=== PATIENT | female | born 1990 | race Caucasian/White ===

== ENCOUNTER 2016-10-22 08:56 | Emergency (ER) | payer BC ==
[~2016-10-22] VITALS: Ht 160 cm; Wt 90.7 kg
[~2016-10-22 08:56] MED LIST: CITA40TA19 PO; CYCL10TA9 PO; HYDR-3714 PO; IBUP800T26 PO; SPIR50TA27 PO
[2016-10-22] MEDS ORDERED: PROG100C6 RC (09:14)
[2016-10-22 09:30] LABS: BILIRUBIN,URINE NEGATIVE (NEGATIVE); KETONES,URINE 1+ (NEGATIVE); LEUKOCYTE ESTERASE ,URINE 2+ (NEGATIVE); NITRITE,URINE NEGATIVE (NEGATIVE); PH,URINE 5 (5-9); PROTEIN,URINE 2+ (NEGATIVE); UROBILINOGEN,URINE NORMAL (NORMAL)
[2016-10-22 09:44] LABS: WBC,URINE RARE /HPF
--- NOTE | 2016-10-22 10:46 | ED GU-Female ---
General Chief Complaint: -Female Stated Complaint: POSS MISCARRIAGE/VAG BLEEDING Nursing Triage Note: Ambulatory to ED 9, referred by Dr. Wilkinson's office for reports of vaginal bleeding that started at 0800. Patient denies any pain. Patient reports that the bleeding is slightly heavier than spotting, but is not heavy bleeding. She has passed some clots. Nursing Sepsis Screen: No Definite Risk Source: patient Exam Limitations: no limitations History of Present Illness Time seen by provider: 10:41 Initial Comments The patient is a 26-year-old white female who is here because of vaginal bleeding. She believes herself to be 5 weeks by virtue of a quantitative hCG done last week. She reports that it this morning at about 2 hours prior to her appearance here she began to have Modest vaginal bleeding. There is no pain. She states there has been some clotting. She had called Dr. Wilkinson's office but he was out for the weekend. His staff sent her here for repeat hCG. Timing/Duration: this morning Severity/Quality: mild Allergies and Home Medications Allergies Coded Allergies: Penicillins (Verified Allergy, Intermediate, RASH, 10/22/16) Home Medications Progesterone,Micronized 100 Mg Capsule, 100 MG RC BID, (Reported) Constitutional: see HPI EENTM: no symptoms reported Respiratory: no symptoms reported Cardiovascular: no symptoms reported Gastrointestinal: no symptoms reported Genitourinary: see HPI Musculoskeletal: no symptoms reported Skin: no symptoms reported Psychiatric/Neurological: No Symptoms Reported Endocrine: No Symptoms Reported Hematologic/Lymphatic: No Symptoms Reported Past Nawmkdq-Ivjuwq-Vbcupn Hx Patient Social History Alcohol Use: Denies Use Recreational Drug Use: No Smoking Status: Never a Smoker 2nd Hand Smoke Exposure: No Recent Foreign Travel: No Contact w/Someone Who Travel: No Recent Infectious Disease Expo: No Recent Hopitalizations: No Immunizations Up To Date Tetanus Booster (TDap): Less than 5yrs PED Vaccines UTD: Yes Date of Influenza Vaccine: Mar 03, 2016 Seasonal Allergies Seasonal Allergies: No Surgeries HX Surgeries: No Respiratory Hx Respiratory Disorders: No (allergies) Cardiovascular Hx Cardiac Disorders: No Neurological Hx Neurological Disorders: No Reproductive System Hx Reproductive Disorders: Yes Female Reproductive Disorders: Polycystic Ovarian Dis Genitourinary Hx Genitourinary Disorders: No Gastrointestinal Hx Gastrointestinal Disorders: Yes Gastrointestinal Disorders: Gastroesophageal Reflux Musculoskeletal Hx Musculoskeletal Disorders: No Endocrine Hx Endocrine Disorders: Yes (pre diabetic) HEENT HX ENT Disorders: No Cancer Hx Cancer: No Psychosocial Hx Psychiatric Problems: Yes Behavioral Health Disorders: Depression Integumentary HX Skin/Integumentary Disorder: No Blood Transfusions Hx Blood Disorders: No Adverse Reaction to a Blood Tr: No Physical Exam Vital Signs Vital Sign - Last 12Hours 10/22/16 09:07 Temp 98.2 Pulse 104 Resp 16 B/P (MAP) 139/82 Pulse Ox 97 O2 Delivery Room Air Capillary Refill : Less Than 3 Seconds General Appearance: WD/WN, no apparent distress HEENT: normal ENT inspection Cardiovascular: normal peripheral pulses, regular rate, rhythm, no edema, no gallop, no JVD, no murmur Respiratory: chest non-tender Gastrointestinal: other Progress/Results/Core Measures Results/Orders Lab Results Laboratory Tests Test 10/22/16 09:18 10/22/16 09:20 Range/Units Urine Color YELLOW Urine Clarity SLIGHTLY CLOUDY Urine pH 5 5-9 Urine Specific New Site 1.020 1.016-1.022 Urine Protein 2+ H NEGATIVE Urine Glucose (UA) NEGATIVE NEGATIVE Urine Ketones 1+ H NEGATIVE Urine Nitrite NEGATIVE NEGATIVE Urine Bilirubin NEGATIVE NEGATIVE Urine Urobilinogen NORMAL NORMAL MG/DL Urine Leukocyte Esterase 2+ H NEGATIVE Urine RBC (Auto) 5+ H NEGATIVE Urine RBC 5-10 H /HPF Urine WBC RARE /HPF Urine Squamous Epithelial Cells 5-10 /HPF Urine Crystals NONE /LPF Urine Bacteria FEW H /HPF Urine Casts NONE /LPF Urine Mucus MODERATE H /LPF Urine Culture Indicated YES Human Chorionic Gonadotropin, Quant [id number] H <5 MIU/ML My Orders Orders - COLBY HAWK MD Hcg,Quantitative (10/22/16 09:14) Ua Culture If Indicated (10/22/16 09:14) Urine Culture (10/22/16 09:18) Vital Signs/I&O Vital Sign - Last 12Hours 10/22/16 09:07 Temp 98.2 Pulse 104 Resp 16 B/P (MAP) 139/82 Pulse Ox 97 O2 Delivery Room Air Blood Pressure Mean: 101 Departure Impression Impression: Primary Impression: vaginal bleeding/threatened miscarriage Disposition: 01 HOME, SELF-CARE Condition: Improved Departure-Patient Inst. Decision time for Depature: 10:44 Referrals: GISELA COLIN DO (PCP) Primary Care Physician Add. Discharge Instructions: All discharge instructions reviewed with patient and/or family. Voiced understanding. The hCG was 41,000 as compared to 19,000 from an outpatient reading last week. A copy of this was sent with the patient. She is advised to rest and observe. A repeat in 2 days or more will define the issue of miscarriage COLBY HAWK MD October 22, 2016 10:46
[2016-10-22 11:05] VITALS: BP 139/82
== END 2016-10-22 11:06 | disposition home or self-care (01) ==
LOC: EDUNIT# 08:56 → ER 09:00
DX: O20.0 Threatened abortion (principal); Z3A.01 Less than 8 weeks gestation of pregnancy
CPT/HCPCS: 36415; 81000; 84702; 87088; 99283

== ENCOUNTER 2017-02-06 22:16 | Outpatient (CLI) | payer BC ==
[~2017-02-06] VITALS: Ht 158.8 cm; Wt 103.0 kg
[~2017-02-06 22:16] MED LIST changes: +PROG100C6 RC
[2017-02-06 22:33] VITALS: BP 120/65
[2017-02-06] MEDS ORDERED: PREN-142 PO (22:50)
--- NOTE | 2017-02-07 14:37 | Physician Query-Final Dx ---
MIRTHA PRAR 02/07/17 1437: Clinic Account Progress/Dx Physician Query: Please give diagnosis Date of Service Feb 06, 2017 at 22:16 LEONOR HEATON MD 02/07/17 1746: Clinic Account Progress/Dx DIAGNOSIS: Diagnosis decreased movement MIRTHA PARR Feb 07, 2017 14:37 LEONOR HEATON MD Feb 07, 2017 17:46
== END 2017-02-06 22:55 | disposition home or self-care (01) ==
LOC: WSo 22:16 → LDRP 22:17 → WSo 22:55
PROVIDERS: ATTEND Obstetrics & Gynecology
DX: O36.8120 Decreased fetal movements, second trimester, not applicable or unspecified (principal); Z3A.20 20 weeks gestation of pregnancy
CPT/HCPCS: 99213

== ENCOUNTER 2017-06-09 07:00 | Inpatient (IN) | payer BC ==
[~2017-06-09] VITALS: Ht 160 cm; Wt 99.8 kg
[2017-06-09] VITALS (64 sets, daily range): BP systolic 88–135; BP diastolic 47–75
[~2017-06-09 07:00] MED LIST changes: +PREN-142 PO
[2017-06-09] MEDS ORDERED: OXYTOCIN/NORMAL SALINE 500 ML IV SCH ×2 (07:25→18:07)
[2017-06-09] MEDS ORDERED: VANCOMYCIN INJECTION 1,000 MG in NS (IVPB) 250 ML IV SCH (07:30)
--- NOTE | 2017-06-09 07:37 | History & Physical ---
History and Physical Date Seen by Provider: Jun 09, 2017 Time Seen by Provider: 07:33 this patient is a 26-year-old G1 white female with a due date of June 21, 2017. That places her at 38-2/7 weeks' gestation. Her is complicated by fascial diabetes which has been well controlled with diet. She presents now for labor induction. She denies rupture membranes or bleeding. She is having occasional contractions. She is GBS positive and allergic to penicillin. The Isolette was showed inducible resistance to clindamycin. She will be prophylaxed with vancomycin. allergies are to penicillin Medications are vitamins and Atarax Past medical history, past surgical history, obstetric history, family history, and social histories are per the antepartum record HEENT exam is normal Neck is supple no lymphadenopathy no thyromegaly Abdomen is gravid soft nontender nondistended Extremities show no clubbing cyanosis. There is no Homans sign. Pelvic exam is pending prior exam in clinic showed a cervix is 3 cm dilated over 50% effaced, at the 0 to -1 station vertex with a soft and mid cervix - this equates to Villanueva score of 9 Assessment and plan term at 38-2/7 weeks' gestation with GBS positive culture. She'll be prophylaxed with vancomycin. Plan is for induction of labor with Pitocin. Expectation is for vaginal delivery. Plans preparations will be in place for if needed. Blood sugars were monitored during labor as warranted 38-2/7 weeks' gestation with gestational diabetes admitted for labor induction Allergies and Home Medications Allergies Coded Allergies: Penicillins (Verified Allergy, Intermediate, RASH, 10/22/16) Home Medications Vit No.124/Iron/FA 1 Each Tablet, 1 EACH PO DAILY, (Reported) LEONOR HEATON MD Jun 09, 2017 07:37
[2017-06-09 07:56] LABS: BASOPHILS % (AUTO) 0 % (0-10); EOSINOPHILS # (AUTO) 0.2 10^3/uL (0.0-0.3); EOSINOPHILS % (AUTO) 3 % (0-10); HEMATOCRIT 34 % (35-52); HEMOGLOBIN 12.4 G/DL (11.5-16.0); LYMPHOCYTES # (AUTO) 2.2 X 10^3 (1.0-4.0); LYMPHOCYTES % (AUTO) 28 % (12-44); MEAN CORPUSCULAR HEMOGLOBIN 30 PG (25-34); MEAN CORPUSCULAR HGB CONC 36 G/DL (32-36); MEAN CORPUSCULAR VOLUME 84 FL (80-99); MEAN PLATELET VOLUME 10.7 FL (7.4-10.4); MONOCYTES # (AUTO) 0.9 X 10^3 (0.0-1.0); MONOCYTES % (AUTO) 11 % (0-12); NEUTROPHILS # (AUTO) 4.4 X 10^3 (1.8-7.8); NEUTROPHILS % (AUTO) 57 % (42-75); PLATELET COUNT 193 10^3/uL (130-400); RED BLOOD COUNT 4.08 10^6/uL (4.35-5.85); RED CELL DISTRIBUTION WIDTH 13.6 % (10.0-14.5); WHITE BLOOD COUNT 7.6 10^3/uL (4.3-11.0)
[2017-06-09] MEDS: D5 LR IV SOLUTION 1,000 ML IV SCH ×2 (08:01→14:12)
[2017-06-09] MEDS ORDERED: INFLUENZA TRIvalent 2017-2018 0.5 ML/45 MCG SYR IM ONE (09:00)
[2017-06-09] MEDS ORDERED: diphenhydrAMINE 50 MG/ML INJ (BENADRYL) IM ONE (09:00)
[2017-06-09] MEDS ORDERED: SUFENTA 0.6MCG/ML BUPIVA 0.125 100 ML ONE ×2 (12:43→13:17)
[2017-06-09] MEDS ORDERED: LIDOCAINE PF 2% 5 ML (XYLOCAINE) VIAL ONE (13:17)
[2017-06-09] MEDS ORDERED: fentaNYL INJECTION 100 MCG/2 ML AMP ONE (13:17)
[2017-06-09] MEDS ORDERED: LACTATED RINGERS 1,000 ML IV ONE (17:09)
[2017-06-09] MEDS ORDERED: ONDANSETRON 4 MG/2 ML (SDV) Z0FRAN IV PRN (17:15)
[2017-06-09] MEDS ORDERED: EPIDURAL (SUFENTA 0.6MCG/ML BUPIVA 0.125%) 100 ML BAG EPI PRN (17:15)
[2017-06-09] MEDS ORDERED: NALOXONE 0.4 MG/ML 1 ML (NARCAN) VIAL IV PRN ×2 (17:15)
[2017-06-09] MEDS ORDERED: diphenhydrAMINE 50 MG/ML INJ (BENADRYL) IV PRN (17:15)
[2017-06-09] MEDS ORDERED: METOCLOPRAMIDE INJ 10 MG/2 ML (REGLAN) IV PRN (17:15)
[2017-06-09] MEDS ORDERED: LIDOCAINE/EPI 2% 1:200,00 (XYLOCAINE) 10 ML VIAL ONE (17:47)
[2017-06-09] MEDS ORDERED: MEASLES,MUMPS,RUBELLA 1 EA INJ SC ONE (18:15)
[2017-06-09] MEDS ORDERED: BENZOCAINE/MENTHOL (DERMOPLAST) 56 ML CAN TP PRN (18:15)
[2017-06-09] MEDS ORDERED: ONDANSETRON 4 MG/2 ML (SDV) Z0FRAN IVP PRN (18:15)
[2017-06-09] MEDS ORDERED: TETANUS,DIPTH,PERTUSS P/F (BOOSTRIX) 0.5 ML VIAL IM ONE (18:15)
[2017-06-09] MEDS ORDERED: LIDOCAINE/EPI 2% 1:100,00 (XYLOCAINE) 20 ML VIAL INJ ONE (19:00)
[2017-06-09] MEDS: DOCUSATE SODIUM 100 MG (COLACE) CAP PO SCH (21:58)
[2017-06-09] MEDS: KETOROLAC 30 MG/ML VIAL IV SCH (21:58)
[2017-06-09] MEDS: oxyCODONE/APAP 10/325MG (PERCOCET 10) TABLET PO PRN (23:48)
--- NOTE | 2017-06-10 03:34 | OPERATIVE REPORT ---
DATE OF SERVICE: 06/09/2017 DELIVERY NOTE The patient delivered a viable female via term spontaneous vaginal delivery under epidural analgesia augmented with local and over a midline episiotomy performed when the patient had the baby pushed down onto the perineum and could not affect the delivery. An episiotomy was performed and with the next 2 or 3 pushes the infant delivered. There was a double nuchal cord that was easily released. The was bulb suctioned on delivery of the head and again on completion of delivery. The umbilical cord when pulseless was clamped doubly. The father cut the cord, the baby was passed to mom's abdomen. The infant had weight of 6 pounds 2 ounces, Apgars of 8 and 9 and time of 1910. The placenta delivered spontaneously, it was Aguilar. It was a battledore placenta with a 3-vessel cord and appeared normal. It was sent to pathology for permanent section secondary to the patient's gestational diabetes. Cord blood had been obtained, it had a pH of 7.18. The infant was shown some decelerations during the pushing phase, but it had a normal reassuring strip throughout and the infant had normal Apgars after delivery. The cervix, vagina, rectum and perineum were examined and found intact except for the midline episiotomy, which was repaired with a single suture of 3-0 Vicryl Rapide in the usual manner without difficulty. Sponge and needle counts were correct on completion of delivery and the repair. Estimated blood loss was around 300 mL. The patient remained in the LDR for recovery. The baby remained with the mom. Job ID: [id number] DocumentID: [id number] Dictated Date: 06/09/2017 19:36:02 Bonding Supervisor Date: 06/10/2017 03:33:57 Dictated By: LEONOR HEATON MD
[2017-06-10 04:05] VITALS: BP 109/65
[2017-06-10] MEDS: oxyCODONE/APAP 10/325MG (PERCOCET 10) TABLET PO PRN (04:08)
[2017-06-10] MEDS: KETOROLAC 30 MG/ML VIAL IV SCH ×2 (04:08→10:00)
--- NOTE | 2017-06-10 07:52 | Progress Note-Standard ---
Standard Progress Note Progress Notes/Assess & Plan Date Seen by Provider: Jun 10, 2017 Time Seen by Provider: 07:51 Progress/Assessment & Plan this patient is without complaint. She is ambulating, voiding, tolerating by mouth well, has good pain control. Vital Signs Date Time Temp Pulse Resp B/P (MAP) Pulse Ox O2 Delivery O2 Flow Rate FiO2 06/10/17 04:05 97.5 87 18 109/65 (80) 99 Room Air 06/09/17 23:50 98.7 95 18 90/56 (67) 98 Room Air 06/09/17 21:15 101.5 06/09/17 20:52 110 18 88/47 (61) Room Air 06/09/17 20:36 100.9 120 18 92/54 (67) Room Air 06/09/17 20:21 121 18 92/53 (66) Room Air 06/09/17 20:06 101.9 118 18 103/54 (70) Room Air 06/09/17 19:51 101.2 115 18 99/52 (68) Room Air 06/09/17 19:38 117 18 93/48 (63) Room Air 06/09/17 19:35 102.0 06/09/17 19:21 133 18 117/53 (74) Room Air 06/09/17 18:30 88 123/62 (82) Room Air 06/09/17 18:15 82 135/64 (87) Room Air 06/09/17 18:00 96 125/75 (92) Room Air 06/09/17 17:45 99.0 98 104/65 (78) Room Air 06/09/17 17:30 82 101/54 (70) Room Air 06/09/17 17:15 91 22 118/49 (72) Room Air 06/09/17 16:45 83 111/58 (75) Room Air 06/09/17 16:30 90 108/53 (71) Room Air 06/09/17 16:15 100.1 80 105/61 (76) Room Air 06/09/17 16:00 83 117/59 (78) Room Air 06/09/17 15:45 91 127/71 (89) Room Air 06/09/17 15:30 85 129/61 (83) Room Air 06/09/17 15:15 Room Air 06/09/17 15:10 75 104/53 (70) Room Air 06/09/17 15:00 99.5 80 98/53 (68) Room Air 06/09/17 14:45 85 114/57 (76) Room Air 06/09/17 14:40 85 118/60 (79) Room Air 06/09/17 14:35 88 115/64 (81) Room Air 06/09/17 14:30 85 114/57 (76) Room Air 06/09/17 14:15 99 117/71 (86) 97 Room Air 06/09/17 14:12 85 108/59 (75) 97 Room Air 06/09/17 14:10 81 111/56 (74) 96 Room Air 06/09/17 14:06 81 118/59 (78) 96 Room Air 06/09/17 14:03 90 118/58 (78) 98 Room Air 06/09/17 14:00 77 129/70 (89) 98 Room Air 06/09/17 13:58 83 107/58 (74) 98 Room Air 06/09/17 13:55 99.9 75 105/55 (72) 97 Room Air 06/09/17 13:50 77 106/65 (79) 98 Room Air 06/09/17 13:45 89 125/65 (85) Room Air 06/09/17 13:43 95 120/71 (87) 97 Room Air 06/09/17 13:41 91 126/66 (86) 97 Room Air 06/09/17 13:38 93 124/59 (80) 99 Room Air 06/09/17 13:35 89 123/59 (80) 99 Room Air 06/09/17 13:30 93 121/60 (80) Room Air 06/09/17 13:29 79 120/70 (87) 99 Room Air 06/09/17 13:25 86 117/58 (77) 97 Room Air 06/09/17 13:23 83 125/59 (81) 97 Room Air 06/09/17 13:20 82 109/55 (73) 97 Room Air 06/09/17 13:15 91 134/58 (83) Room Air 06/09/17 13:13 82 116/58 (77) 98 Room Air 06/09/17 13:10 94 125/69 (87) Room Air 06/09/17 13:08 82 125/59 (81) Room Air 06/09/17 13:03 82 122/59 (80) Room Air 06/09/17 13:00 82 117/58 (77) Room Air 06/09/17 12:45 82 116/62 (80) Room Air 06/09/17 12:30 82 116/62 (80) Room Air 06/09/17 12:15 85 109/58 (75) Room Air 06/09/17 12:00 81 109/69 (82) Room Air 06/09/17 11:45 99.0 78 123/63 (83) Room Air 06/09/17 11:30 89 106/55 (72) Room Air 06/09/17 11:15 88 105/57 (73) Room Air 06/09/17 11:00 98.4 83 107/55 (72) Room Air 06/09/17 10:45 85 16 114/56 (75) Room Air 06/09/17 09:35 84 16 108/60 (76) Room Air 06/09/17 08:40 99.6 90 18 99/52 (68) Room Air 06/09/17 08:30 82 16 97/55 (69) Room Air I & O 06/10/17 07:00 Intake Total 3500 ml Output Total 500 ml Balance 3000 ml vital signs are stable. Patient is afebrile. The fundus is firm below the umbilicus and nontender. Extremities show no clubbing or cyanosis. There is no Homans sign. There is some pretibial pitting pitting edema that is normal. Assessment and plan day number 1 status post term spontaneous vaginal delivery doing well. Plan is for routine convalescence care LEONOR HEATON MD Jun 10, 2017 7:52 am
[2017-06-10] MEDS ORDERED: OXYC-465 PO (07:53)
[2017-06-10] MEDS ORDERED: IBUP-1780 PO (07:53)
[2017-06-10] MEDS ORDERED: DOCU100C37 PO (07:53)
--- NOTE | 2017-06-10 07:54 | Discharge Instructions ---
Discharge Instructions Discharge Medications New, Converted or Re-Newed RX: RX on Chart Patient Instructions Patient Instructions: as directed Return to The Hospital For: as directed Activity & Diet Discharge Diet: No Restrictions Activity as Tolerated: No Orders-Post D/C & Referrals Follow Up Appt: Call to make follow up appt. for patient in 4 weeks. Activity Per routine post vaginal delivery instructions. Please call in RX to patient pharmacy. Diet as tolerated Patient may shower or tub bathe as desired. LEONOR HEATON MD Jun 10, 2017 7:54 am
[2017-06-10 08:20] VITALS: BP 106/68
[2017-06-10] MEDS: DOCUSATE SODIUM 100 MG (COLACE) CAP PO SCH ×2 (09:46→20:56)
[2017-06-10 12:20] VITALS: BP 114/74
[2017-06-10] MEDS ORDERED: INFLUENZA TRIvalent 2017-2018 0.5 ML/45 MCG SYR IM ONE (13:20)
--- NOTE | 2017-06-10 13:55 | Anesthesia-Regional Post-Op ---
Regional Patient Condition Mental Status: Alert, Oriented x3 Circulation: Same as Pre-Op Headache: Present (transient, comes and goes, and not related to patient positioning) Sensation: Full Recovery Motor Block: Absent Post Op Complications Complications Rounded on patient postoperatively at 0745 this am. Pt sitting up in bed, baby. Complains of muscular related paint across back, and a headache that comes and goes, unrelated to her position. Discussed conservative treatment (hydration/caffeine) and that we would reassess this afternoon. Intrathecal catheter remains in place at this time. Reevaluated at 13:45, pt again sitting up in bed. Reports back tightness/pain has lessened, and that headaches are still present but not sustained, and not while upright. Discussed that nursing staff will be d/c'ing catheter shortly, and TF up with us if symptoms worsen. Pt is agreeable that epidural blood patch not indicated at this time, but to communicate with nursing staff and update us , if necessary. Follow Up Care/Instructions Patient Instructions None needed. Anesthesia/Patient Condition BASILIA DEGROOT CRNA Jun 10, 2017 13:55
[2017-06-10] MEDS ORDERED: IBUPROFEN 800 MG (MOTRIN) TAB PO ONE (14:13)
[2017-06-10] MEDS: IBUPROFEN 800 MG (MOTRIN) TAB PO SCH ×2 (14:20→20:56)
[2017-06-10 16:40] VITALS: BP 109/71
[2017-06-10 21:00] VITALS: BP 115/74
[2017-06-11 03:50] VITALS: BP 110/64
[2017-06-11] MEDS: IBUPROFEN 800 MG (MOTRIN) TAB PO SCH ×2 (03:52→09:24)
[2017-06-11 09:18] VITALS: BP 108/61
[2017-06-11] MEDS: DOCUSATE SODIUM 100 MG (COLACE) CAP PO SCH (09:24)
--- NOTE | 2017-06-11 09:50 | Progress Note-Standard ---
Standard Progress Note Progress Notes/Assess & Plan Date Seen by Provider: Jun 11, 2017 Time Seen by Provider: 09:49 Progress/Assessment & Plan this patient is without complaint. She is ambulating, voiding, tolerating by mouth well, has good pain control. Vital Signs Date Time Temp Pulse Resp B/P (MAP) Pulse Ox O2 Delivery O2 Flow Rate FiO2 06/10/17 04:05 97.5 87 18 109/65 (80) 99 Room Air 06/09/17 23:50 98.7 95 18 90/56 (67) 98 Room Air 06/09/17 21:15 101.5 06/09/17 20:52 110 18 88/47 (61) Room Air 06/09/17 20:36 100.9 120 18 92/54 (67) Room Air 06/09/17 20:21 121 18 92/53 (66) Room Air 06/09/17 20:06 101.9 118 18 103/54 (70) Room Air 06/09/17 19:51 101.2 115 18 99/52 (68) Room Air 06/09/17 19:38 117 18 93/48 (63) Room Air 06/09/17 19:35 102.0 06/09/17 19:21 133 18 117/53 (74) Room Air 06/09/17 18:30 88 123/62 (82) Room Air 06/09/17 18:15 82 135/64 (87) Room Air 06/09/17 18:00 96 125/75 (92) Room Air 06/09/17 17:45 99.0 98 104/65 (78) Room Air 06/09/17 17:30 82 101/54 (70) Room Air 06/09/17 17:15 91 22 118/49 (72) Room Air 06/09/17 16:45 83 111/58 (75) Room Air 06/09/17 16:30 90 108/53 (71) Room Air 06/09/17 16:15 100.1 80 105/61 (76) Room Air 06/09/17 16:00 83 117/59 (78) Room Air 06/09/17 15:45 91 127/71 (89) Room Air 06/09/17 15:30 85 129/61 (83) Room Air 06/09/17 15:15 Room Air 06/09/17 15:10 75 104/53 (70) Room Air 06/09/17 15:00 99.5 80 98/53 (68) Room Air 06/09/17 14:45 85 114/57 (76) Room Air 06/09/17 14:40 85 118/60 (79) Room Air 06/09/17 14:35 88 115/64 (81) Room Air 06/09/17 14:30 85 114/57 (76) Room Air 06/09/17 14:15 99 117/71 (86) 97 Room Air 06/09/17 14:12 85 108/59 (75) 97 Room Air 06/09/17 14:10 81 111/56 (74) 96 Room Air 06/09/17 14:06 81 118/59 (78) 96 Room Air 06/09/17 14:03 90 118/58 (78) 98 Room Air 06/09/17 14:00 77 129/70 (89) 98 Room Air 06/09/17 13:58 83 107/58 (74) 98 Room Air 06/09/17 13:55 99.9 75 105/55 (72) 97 Room Air 06/09/17 13:50 77 106/65 (79) 98 Room Air 06/09/17 13:45 89 125/65 (85) Room Air 06/09/17 13:43 95 120/71 (87) 97 Room Air 06/09/17 13:41 91 126/66 (86) 97 Room Air 06/09/17 13:38 93 124/59 (80) 99 Room Air 06/09/17 13:35 89 123/59 (80) 99 Room Air 06/09/17 13:30 93 121/60 (80) Room Air 06/09/17 13:29 79 120/70 (87) 99 Room Air 06/09/17 13:25 86 117/58 (77) 97 Room Air 06/09/17 13:23 83 125/59 (81) 97 Room Air 06/09/17 13:20 82 109/55 (73) 97 Room Air 06/09/17 13:15 91 134/58 (83) Room Air 06/09/17 13:13 82 116/58 (77) 98 Room Air 06/09/17 13:10 94 125/69 (87) Room Air 06/09/17 13:08 82 125/59 (81) Room Air 06/09/17 13:03 82 122/59 (80) Room Air 06/09/17 13:00 82 117/58 (77) Room Air 06/09/17 12:45 82 116/62 (80) Room Air 06/09/17 12:30 82 116/62 (80) Room Air 06/09/17 12:15 85 109/58 (75) Room Air 06/09/17 12:00 81 109/69 (82) Room Air 06/09/17 11:45 99.0 78 123/63 (83) Room Air 06/09/17 11:30 89 106/55 (72) Room Air 06/09/17 11:15 88 105/57 (73) Room Air 06/09/17 11:00 98.4 83 107/55 (72) Room Air 06/09/17 10:45 85 16 114/56 (75) Room Air 06/09/17 09:35 84 16 108/60 (76) Room Air 06/09/17 08:40 99.6 90 18 99/52 (68) Room Air 06/09/17 08:30 82 16 97/55 (69) Room Air I & O 06/10/17 07:00 Intake Total 3500 ml Output Total 500 ml Balance 3000 ml vital signs are stable. Patient is afebrile. The fundus is firm below the umbilicus and nontender. Extremities show no clubbing or cyanosis. There is no Homans sign. There is some pretibial pitting pitting edema that is normal. Assessment and plan day number 1 status post term spontaneous vaginal delivery doing well. Plan is for routine convalescence care May 11, 2018 Patient without complaint. She is ambulating, voiding, tolerating by mouth, has good pain control, and is requesting discharge home. Vital Signs Date Time Temp Pulse Resp B/P (MAP) Pulse Ox O2 Delivery O2 Flow Rate FiO2 06/11/17 03:50 98.3 93 18 110/64 (79) 98 Room Air 06/10/17 21:00 98.1 95 18 115/74 (88) 98 Room Air 06/10/17 16:40 97.9 95 18 109/71 (84) 98 Room Air 06/10/17 12:20 98.2 105 18 114/74 (87) 98 Room Air vital signs are stable. Patient is afebrile. Fundus is firm below the umbilicus and nontender. Extreme show no clubbing cyanosis. There is no Homans sign. Assessment and plan day number 2 status post term spontaneous vaginal delivery doing well. Plan is to discharge home with follow-up in clinic. LEONOR HEATON MD Jun 11, 2017 9:50 am
== END 2017-06-11 12:50 | disposition home or self-care (01) | DRG 775 ==
LOC: LDRP 07:05
PROVIDERS: ADMIT Obstetrics & Gynecology; ATTEND Obstetrics & Gynecology
PROC: 0W8NXZZ Division of Female Perineum, External Approach (ICD-10-PCS; principal; 2017-06-09)
PROC: 10E0XZZ Delivery of Products of Conception, External Approach (ICD-10-PCS; 2017-06-09)
PROC: 3E033VJ Introduction of Other Hormone into Peripheral Vein, Percutaneous Approach (ICD-10-PCS; 2017-06-09)
DX: O24.420 Gestational diabetes mellitus in childbirth, diet controlled (principal); O99.824 Streptococcus B carrier state complicating childbirth; Z88.0 Allergy status to penicillin; O69.81X0 Labor and delivery complicated by cord around neck, without compression, not applicable or unspecified; Z3A.38 38 weeks gestation of pregnancy; Z37.0 Single live birth; Z23 Encounter for immunization
CPT/HCPCS: 36415; 82962; 85025; 86850; 86900; 86901

== ENCOUNTER → 2017-09-09 | Outpatient (CLI) | payer BC ==
[~2017-09-09] MED LIST changes: +CATHETER FLUSH 10 ML SYR IV PRN; +DOCU100C37 PO; +IBUP-1780 PO; +OXYC-465 PO
--- NOTE | 2017-09-09 11:02 | Diagnostic Imaging Report ---
INDICATION: Right upper quadrant abdominal pain. TECHNIQUE: After intravenous administration of 5 mCi of technetium 99m Choletec, scintigraphic imaging of the abdomen was performed. FINDINGS: There is normal distribution of activity throughout the liver on the initial images with prompt appearance of activity in the biliary tree and gallbladder. Activity passes into the small bowel. After intravenous administration of cholecystokinin, the gallbladder ejection fraction was calculated to be 76%. Normal values are 50% or greater. IMPRESSION: Normal hepatobiliary scan without evidence of cholecystitis or biliary obstruction. Dictated by: Dictated on workstation # [id number]
== END ==
LOC: CARD 08:15
PROVIDERS: ATTEND Nurse Practitioner Family
DX: R10.11 Right upper quadrant pain (principal)
CPT/HCPCS: 78227

== ENCOUNTER → 2017-09-29 | Outpatient (CLI) | payer BC ==
[~2017-09-29] MED LIST changes: -CATHETER FLUSH 10 ML SYR IV PRN
--- NOTE | 2017-09-29 16:56 | Diagnostic Imaging Report ---
CLINICAL INDICATION: Patient with thyromegaly. COMPARISONS: Ultrasound of the thyroid gland dated 11/13/2012. FINDINGS: THYROID NODULES: None. THYROID GLAND: The thyroid gland is diffusely heterogeneous and iso/hypoechoic with no significant abnormal central Doppler flow. The right lobe measures 5.0 cm x 2.3 cm x 2.1 cm and the left lobe measures 5.6 cm x 2.4 cm x 2.2 cm in their three dimensions. ISTHMUS: The isthmus is unremarkable and measures 7 mm in thickness. IMPRESSION: Stable-appearing heterogeneous thyroid gland with no nodules seen. Dictated by: Dictated on workstation # [id number]
== END ==
LOC: RAD 13:31
PROVIDERS: ATTEND Nurse Practitioner Family
DX: E01.0 Iodine-deficiency related diffuse (endemic) goiter (principal)
CPT/HCPCS: 76536

== ENCOUNTER 2019-01-24 10:08 | Outpatient (RCR) | payer BC ==
[~2019-01-24 10:08] MED LIST changes: +PROG100C11 RC; -PROG100C6 RC
[2019-01-24 10:58] VITALS: BP 114/63
== END 2019-01-24 11:10 | disposition home or self-care (01) ==
LOC: LDRP 10:08 → WSo 10:08
PROVIDERS: ATTEND Obstetrics & Gynecology
DX: O99.89 Other specified diseases and conditions complicating pregnancy, childbirth and the puerperium (principal); Z3A.35 35 weeks gestation of pregnancy
CPT/HCPCS: 59025

== ENCOUNTER → 2019-02-13 | Outpatient (CLI) | payer BC ==
[~2019-02-13] MED LIST changes: +OXYC1TAB87 PO
== END ==
LOC: LABNPT 08:58
PROVIDERS: ATTEND Obstetrics & Gynecology
DX: O28.8 Other abnormal findings on antenatal screening of mother (principal); Z3A.00 Weeks of gestation of pregnancy not specified
CPT/HCPCS: 82570; 84156

== ENCOUNTER 2019-02-15 07:00 | Inpatient (IN) | payer BC ==
[2019-02-15] VITALS (54 sets, daily range): BP systolic 96–141; BP diastolic 53–83
[~2019-02-15] VITALS: Ht 160 cm; Wt 100.1 kg
[~2019-02-15 07:00] MED LIST changes: -OXYC1TAB87 PO
--- NOTE | 2019-02-15 07:00 | NUR ---
PAT COLLIER presented to unit via ambulation, accompanied by S.O., for INDUCTION. PAT COLLIER weighed, gowned, voided, and to bed. EFHM and TOCO applied, VS taken. PAT COLLIER oriented to bed controls, call light, TV, heat, and A/C controls.
[2019-02-15] MEDS ORDERED: D5 LR IV SOLUTION 1,000 ML IV ONE (07:31)
[2019-02-15] MEDS: D5 LR IV SOLUTION 1,000 ML IV SCH ×2 (07:55→14:40)
[2019-02-15] MEDS ORDERED: OXYTOCIN/NORMAL SALINE 500 ML IV SCH ×2 (07:57→16:39)
[2019-02-15] MEDS ORDERED: VANCOMYCIN INJECTION 1,000 MG in NS (IVPB) 250 ML IV SCH (08:00)
--- NOTE | 2019-02-15 08:04 | History & Physical ---
History and Physical Date Seen by Provider: Feb 15, 2019 Time Seen by Provider: 08:02 This patient is a 28-year-old white female with an EDC of 9 [phone] putting her now at 38-5/7 weeks gestation. Her is complicated by gestational diabetes. She had a GBS positive culture at 35 weeks gestation and is allergic to penicillin. The os which was resistant and Cleocin. She will be on vancomycin for GBS prophylaxis during labor. She denies rupture membranes or bleeding. She's had no complications with this other than her test gestational diabetes Allergies are to penicillin which causes a rash Medications are vitamins Medical social and surgical histories are per the antepartum record HEENT exam is normal Neck is supple no lymphadenopathy no thyromegaly Abdomen is gravid soft nontender nondistended Extreme show no clubbing cyanosis. There is no Homans sign. Pelvic exam is pending the last exam in clinic showed a cervix 3 cm dilated 5070 percent effaced with a vertex presentation. Assessment and plan term at 38 5/7 weeks' gestation with gestational diabetes and a GBS positive culture. Patient was started on vancomycin and induced with Pitocin. Anticipation is for vaginal delivery Allergies and Home Medications Allergies Coded Allergies: Penicillins (Verified Allergy, Intermediate, RASH, 10/22/16) Home Medications Vit No.124/Iron/FA 1 Each Tablet, 1 EACH PO DAILY, (Reported) Patient Home Medication List Home Medication List Reviewed: Yes LEONOR HEATON MD Feb 15, 2019 08:04
[2019-02-15 08:15] LABS: BASOPHILS % (AUTO) 0 % (0-10); EOSINOPHILS # (AUTO) 0.1 10^3/uL (0.0-0.3); EOSINOPHILS % (AUTO) 2 % (0-10); HEMATOCRIT 35 % (35-52); LYMPHOCYTES # (AUTO) 1.6 X 10^3 (1.0-4.0); LYMPHOCYTES % (AUTO) 26 % (12-44); MEAN CORPUSCULAR HEMOGLOBIN 29 PG (25-34); MEAN CORPUSCULAR HGB CONC 35 G/DL (32-36); MEAN CORPUSCULAR VOLUME 84 FL (80-99); MEAN PLATELET VOLUME 10.4 FL (7.4-10.4); MONOCYTES # (AUTO) 0.6 X 10^3 (0.0-1.0); MONOCYTES % (AUTO) 9 % (0-12); NEUTROPHILS # (AUTO) 3.9 X 10^3 (1.8-7.8); NEUTROPHILS % (AUTO) 63 % (42-75); PLATELET COUNT 158 10^3/uL (130-400); RED CELL DISTRIBUTION WIDTH 13.4 % (10.0-14.5); WHITE BLOOD COUNT 6.3 10^3/uL (4.3-11.0)
[2019-02-15] MEDS ORDERED: diphenhydrAMINE 50 MG/ML INJ (BENADRYL) ONE (09:08)
[2019-02-15] MEDS ORDERED: diphenhydrAMINE 50 MG/ML INJ (BENADRYL) IM ONE (09:15)
[2019-02-15] MEDS ORDERED: SUFENTA 0.6MCG/ML BUPIVA 0.125 100 ML ONE (12:14)
[2019-02-15] MEDS ORDERED: BUPIVACAINE 0.25% 30 ML (SENSORCAINE) VIAL ONE (12:24)
[2019-02-15] MEDS ORDERED: fentaNYL INJECTION 100 MCG/2 ML AMP ONE (12:24)
--- NOTE | 2019-02-15 12:33 | NUR ---
here for epidural placement. Procedure explained, consent reviewed and signed by anesthesia. Questions answered to patient's satisfaction. Time out taken to verify correct patient/procedure. Patient up to side of bed, assisted into sitting position. Betadine prep done x3 and sterile drape applied. Local done, see anesthesia record. Test dose given, see anesthesia record for drug and dosage. Epidural catheter secured in place. Epidural placement complete. Assisted back into bed, monitors adjusted. Epidural dosed, see anesthesia record. Epidural of Sufenta/Bupvicaine @12cc/hr stated per pump. Patient tolerated procedure well.
[2019-02-15] MEDS ORDERED: LACTATED RINGERS 1,000 ML IV ONE (13:28)
[2019-02-15] MEDS ORDERED: diphenhydrAMINE 50 MG/ML INJ (BENADRYL) IV PRN (13:30)
[2019-02-15] MEDS ORDERED: NALOXONE 0.4 MG/ML 1 ML (NARCAN) VIAL IV PRN (13:30)
[2019-02-15] MEDS ORDERED: EPIDURAL (SUFENTA 0.6MCG/ML BUPIVA 0.125%) 100 ML BAG EPI SCH (13:30)
[2019-02-15] MEDS ORDERED: ONDANSETRON 4 MG/2 ML (SDV) Z0FRAN IV PRN (13:30)
[2019-02-15] MEDS ORDERED: CATHETER FLUSH 10 ML SYR IV PRN (13:30)
[2019-02-15] MEDS ORDERED: LIDOCAINE/EPI 2% 1:200,00 (XYLOCAINE) 10 ML VIAL ONE (15:24)
[2019-02-15] MEDS ORDERED: oxyCODONE/APAP 5/325MG (PERCOCET 5) TABLET PO PRN (16:45)
[2019-02-15] MEDS ORDERED: TETANUS,DIPTH,PERTUSS P/F (BOOSTRIX) 0.5 ML VIAL IM ONE (16:45)
[2019-02-15] MEDS ORDERED: MEASLES,MUMPS,RUBELLA 1 EA INJ SC ONE (16:45)
[2019-02-15] MEDS ORDERED: BENZOCAINE/MENTHOL (DERMOPLAST) 56 ML CAN TP PRN (16:45)
[2019-02-15] MEDS ORDERED: ONDANSETRON 4 MG/2 ML (SDV) Z0FRAN IVP PRN (16:45)
[2019-02-15] MEDS: KETOROLAC 30 MG/ML VIAL IVP PRN ×2 (17:02→23:30)
--- NOTE | 2019-02-15 19:15 | NUR ---
FFU/1, light rubra lochia noted. Pericare performed. Fresh vpad and mesh underwear applied. Fresh gown on. Offered to assist pt to bathroom, pt denies urge at this time. Pt assisted to standing at side of bed without incident and assisted to wheelchair. Pt wheeled to room 309 accompanied by NORA Ontiveros, . Pt assisted to bed without difficulty. Pt oriented to room and surroundings. Pt reminded of room service. packet explained. Pt denies questions or concerns at this time.
--- NOTE | 2019-02-15 22:20 | NUR ---
Patient assisted up to bathroom with stand by assist from this RN. Positive void achieved. Savanah care performed by patient at this time. Patient denies feeling unsteady when ambulating. Patient back to bed without issue. SCDs reapplied. POC reviewed and call light and bed controls remain within reach.
[2019-02-15] MEDS: DOCUSATE SODIUM 100 MG (COLACE) CAP PO SCH (22:25)
[2019-02-16 04:13] VITALS: BP 103/63
[2019-02-16] MEDS ORDERED: IBUPROFEN 800 MG (MOTRIN) TAB PO ONE ×2 (06:04→12:13)
--- NOTE | 2019-02-16 06:51 | Anesthesia-Regional Post-Op ---
Regional Patient Condition Mental Status: Alert, Oriented x3 Circulation: Same as Pre-Op Headache: Absent Sensation: Full Recovery Motor Block: Absent Post Op Complications Complications None Follow Up Care/Instructions Patient Instructions None needed. Anesthesia/Patient Condition Patient is doing well, no complaints, stable vital signs, no apparent adverse anesthesia problems. No complications reported per nursing. D/C home per [facility] Criteria: LUIS MANUEL Rae CRNA Feb 16, 2019 06:51
--- NOTE | 2019-02-16 07:45 | Progress Note ---
Standard Progress Note Progress Notes/Assess & Plan Date Seen by a Provider: Feb 16, 2019 Time Seen by a Provider: 07:44 Progress/Assessment & Plan This patient without complaint. She is ablating, voiding, tolerating oral intake well has good pain control. Vital Signs 02/16/19 04:13 Temp 36.5 Pulse 77 Resp 18 B/P (MAP) 103/63 (76) Pulse Ox 99 O2 Delivery Room Air Vital signs are stable. Patient is afebrile. Fundus is firm below the umbilicus nontender. Extremities show no clubbing cyanosis. There is no Homans sign. Assessment and plan day number 1 status post term spontaneous vaginal delivery at 38+ weeks gestation. Patient is doing well and will be discharged home today or tomorrow as she prefers Final Diagnosis 38 week spontaneous vaginal delivery LEONOR HEATON MD Feb 16, 2019 07:45
[2019-02-16] MEDS ORDERED: OXYC1TAB87 PO (07:48)
[2019-02-16] MEDS ORDERED: IBUP-1780 PO (07:48)
[2019-02-16] MEDS ORDERED: DOCU100C37 PO (07:48)
--- NOTE | 2019-02-16 07:49 | Discharge Instructions ---
Discharge Instructions Discharge Medications New, Converted or Re-Newed RX: RX on Chart Patient Instructions Return to The Hospital For: as directED Activity & Diet Discharge Diet: No Restrictions Activity as Tolerated: No Orders-Post D/C & Referrals Follow Up Appt: Call to make follow up appt. for patient in 4 weeks. Activity Per routine post vaginal delivery instructions. Please call in RX to patient pharmacy. Diet as tolerated Patient may shower or tub bathe as desired. LEONOR HEATON MD Feb 16, 2019 07:49
[2019-02-16 08:03] VITALS: BP 115/72
[2019-02-16] MEDS: DOCUSATE SODIUM 100 MG (COLACE) CAP PO SCH ×2 (10:08→20:20)
[2019-02-16] MEDS ORDERED: TETANUS,DIPTH,PERTUSS P/F (BOOSTRIX) 0.5 ML VIAL IM ONE (12:13)
[2019-02-16] MEDS: IBUPROFEN 800 MG (MOTRIN) TAB PO SCH ×2 (12:25→17:00)
[2019-02-16 12:39] VITALS: BP 107/63
--- NOTE | 2019-02-16 14:13 | NUR ---
report received from NORA Tai. care assumed of pt.
[2019-02-16 17:00] VITALS: BP 122/58
--- NOTE | 2019-02-16 19:15 | NUR ---
report given to NORA Nye.
--- NOTE | 2019-02-16 19:15 | NUR ---
REPORT RECEIVED AND CARES RESUMED BY THIS NURSE.
[2019-02-16 20:20] VITALS: BP 120/70
--- NOTE | 2019-02-16 20:20 | NUR ---
INITIAL SHIFT ASSESSMENT DONE. VSS. PT WITH VISITORS PRESENT. PT DENIES ANY PAIN OR NEEDS. COLACE ADMINISTERED.
--- NOTE | 2019-02-16 23:10 | NUR ---
PT AND RESTING SOUNDLY. NO S/S OF DISTRESS OR DISCOMFORT NOTED.
--- NOTE | 2019-02-17 | NUR ---
PT SITTING UP . GOOD TECHNIQUE NOTED. WITH INTERMITTENT SUCK. MOM CONCERNED THAT INFANT FALLS ASLEEP FREQUENTLY. REASSURANCE GIVEN.
--- NOTE | 2019-02-17 00:50 | NUR ---
PADS AND MESH PANTIES GIVEN PER REQUEST. PT ALSO PROVIDED A SNACK. PT DENIES ANY FURTHER NEEDS.
[2019-02-17 02:29] VITALS: BP 118/63
--- NOTE | 2019-02-17 02:30 | NUR ---
PT REPORTS INFANT BEING VERY FUSSY AND SHE IS FEELING EXHAUSTED AND HAS HAD NO SLEEP. REQUESTS TO HAVE INFANT TAKEN TO [facility] SO SHE MAY REST. VSS. DENIES ANY PAIN OR FURTHER NEEDS.
[2019-02-17] MEDS: IBUPROFEN 800 MG (MOTRIN) TAB PO SCH ×3 (06:50→12:06)
[2019-02-17 08:21] VITALS: BP 111/73
[2019-02-17] MEDS: DOCUSATE SODIUM 100 MG (COLACE) CAP PO SCH (08:33)
--- NOTE | 2019-02-17 09:40 | NUR ---
Dr Wilkinson to see patient.
--- NOTE | 2019-02-17 09:44 | Progress Note ---
Standard Progress Note Progress Notes/Assess & Plan Date Seen by a Provider: Feb 17, 2019 Time Seen by a Provider: 09:43 Progress/Assessment & Plan This patient without complaint. She is ablating, voiding, tolerating oral intake well has good pain control. Vital Signs 02/16/19 04:13 Temp 36.5 Pulse 77 Resp 18 B/P (MAP) 103/63 (76) Pulse Ox 99 O2 Delivery Room Air Vital signs are stable. Patient is afebrile. Fundus is firm below the umbilicus nontender. Extremities show no clubbing cyanosis. There is no Homans sign. Assessment and plan day number 1 status post term spontaneous vaginal delivery at 38+ weeks gestation. Patient is doing well and will be discharged home today or tomorrow as she prefers February 17, 2019 Patient without complaint. She is ambulating, voiding, tolerating oral intake well has good pain control. She is requesting discharge home. Vital Signs 02/17/19 08:21 Temp 36.9 Pulse 89 Resp 16 B/P (MAP) 111/73 (86) Pulse Ox 97 O2 Delivery Room Air Vital signs are stable. Patient is afebrile. Fundus is firm below the umbilicus and nontender. Extremities show no clubbing cyanosis. There is no Homans sign. Assessment and plan day number 2 status post term spontaneous vaginal delivery doing well. Plan is for discharge home with follow-up in clinic Final Diagnosis 38 week spontaneous vaginal delivery LEONOR HEATON MD Feb 17, 2019 09:44
--- NOTE | 2019-02-17 12:46 | NUR ---
prescriptions called to [facility] pharmacy
--- NOTE | 2019-02-17 12:55 | NUR ---
Discharge instructions explained, signed and copy to patient. pt verbalized understanding of instructions and denied questions.
--- NOTE | 2019-02-17 14:00 | NUR ---
Discharged to home. Ambulates self downstairs accompanied by s.o. and staff member. To private vehicle with belongings in hand.
[2019-02-20] MEDS ORDERED: IBUPROFEN 800 MG (MOTRIN) TAB PO SCH (18:00)
--- NOTE | 2019-02-21 13:29 | OPERATIVE REPORT ---
DATE OF SERVICE: 02/15/2019 DELIVERY NOTE The patient delivered by term spontaneous vaginal delivery of a viable male infant with Apgars of 8 and 9 at 1 and 5 minutes respectively, weight of 7 pounds 13 ounces. Cord blood pH is 7.15 and a time of 1846. The INFANT delivered over a midline episiotomy, it was performed as the baby was and there was insufficient room for delivery. The delivery was accomplished with the next series of pushes. The was bulb suctioned on delivery of the head and again on completion of delivery. Umbilical cord was doubly clamped, father cut the cord, the baby was passed to mom's abdomen. The placenta delivered spontaneously Aguilar. It was normal with 3-vessel cord. The cervix, vagina, rectum, and perineum were examined and found intact, except for the episiotomy was repaired with a single suture of 3-0 Vicryl Rapide in the usual manner without difficulty to good hemostasis and good reapproximation. Estimated blood loss for the delivery was around 200 mL. Sponge and needle counts were correct on completion of the delivery and repair. The patient remained in the LDR for recovery. The baby remained with the mom. Job ID: [id number] DocumentID: [id number] Dictated Date: 02/21/2019 08:53:17 Filling Layer Up Date: 02/21/2019 13:28:51 Dictated By: LEONOR HEATON MD [facility]
== END 2019-02-17 12:55 | disposition home or self-care (01) | DRG 807 ==
LOC: LDRP 07:05
PROVIDERS: ADMIT Obstetrics & Gynecology; ATTEND Obstetrics & Gynecology
PROC: 10E0XZZ Delivery of Products of Conception, External Approach (ICD-10-PCS; principal; 2019-02-15)
PROC: 0W8NXZZ Division of Female Perineum, External Approach (ICD-10-PCS; 2019-02-15)
PROC: 3E033VJ Introduction of Other Hormone into Peripheral Vein, Percutaneous Approach (ICD-10-PCS; 2019-02-15)
DX: O24.429 Gestational diabetes mellitus in childbirth, unspecified control (principal); O99.824 Streptococcus B carrier state complicating childbirth; Z88.0 Allergy status to penicillin; Z3A.38 38 weeks gestation of pregnancy; Z37.0 Single live birth; Z23 Encounter for immunization
CPT/HCPCS: 36415; 82947; 82962; 85025; 86850; 86900; 86901; 88307; 90715

== ENCOUNTER → 2020-02-26 | Outpatient (CLI) | payer BC ==
[~2020-02-26] MED LIST changes: -OXYC-465 PO; +OXYC-556 PO; +OXYC1TAB87 PO
--- NOTE | 2020-02-26 09:38 | Diagnostic Imaging Report ---
PROCEDURE: US Gallbladder. TECHNIQUE: Multiple real-time grayscale images were obtained over the right upper quadrant in various projections. INDICATION: Abdominal pain The prior gallbladder ultrasound exam of 11/13/2012 failed to show any sign of cholelithiasis or acute cholecystitis. The hepatobiliary scan of 09/09/2017 was also unremarkable for cholecystitis or biliary obstruction. The ejection fraction was 76%. On this exam however there are now multiple gallstones within the gallbladder. The gallbladder wall does not seem to be thickened although it is at the upper limits of normal in size measuring 3 mm. There is no pericholecystic fluid to suggest acute cholecystitis and the common bile duct is not dilated. The liver does not appear to be enlarged. There is no focal mass involving the liver and the biliary tree is not abnormally distended. Spectral and color-flow imaging of the portal vein shows the vein is patent and that there is normal direction of flow within the vein. There is a 1.2 x 1.2 x 1.6 cm rounded hypoechoic lesion in the inferior pole of the right kidney. There may be a few internal echoes with in this lesion. I suspect that this is a cyst which has been slightly complicated by infection and/or hemorrhage. In reviewing the CT abdomen/pelvis exam of 09/10/2013 however there is no sign of a cyst in this area. Consequently may prove worthwhile to have a short-term (three-month) follow-up ultrasound exam for further evaluation of this finding. The pancreas was obscured by bowel gas. The aorta and inferior vena cava are unremarkable. IMPRESSION: 1. In the interval since the prior study multiple calculi have developed within the gallbladder. There is no evidence for acute cholecystitis. However if further evaluation of the gallbladder is desired, then a nuclear medicine hepatobiliary scan would be recommended. 2. The rounded hypoechoic lesion within the right kidney is most likely a slightly complicated cyst. Recommendations as above. Dictated by: Dictated on workstation # [id number]
== END ==
LOC: RAD 08:00
PROVIDERS: ATTEND Nurse Practitioner Family
DX: K80.20 Calculus of gallbladder without cholecystitis without obstruction (principal); N28.9 Disorder of kidney and ureter, unspecified
CPT/HCPCS: 76705

== ENCOUNTER → 2020-09-01 | Outpatient (CLI) | payer BC, OTHER ==
--- NOTE | 2020-09-01 15:05 | Diagnostic Imaging Report ---
INDICATION: Periclavicular lymphadenopathy. COMPARISON: No priors for comparison. TECHNIQUE: Noncontrasted soft tissue neck and chest CTs were performed. FINDINGS: The nasopharynx, oropharynx, and hypopharynx have an unremarkable appearance. The prevertebral and retropharyngeal spaces are unremarkable. The epiglottis and aryepiglottic folds are normal. The true and false vocal cords show no pathological finding. The infra-laryngeal trachea is widely patent. The parotid, submandibular, and thyroid glands appear unremarkable. No suspicious lytic or sclerotic bony lesion. No suspicious appearing cervical lymph nodes. The posterior triangles and supraclavicular fossae are unremarkable. The retroclavicular spaces are unremarkable. The manubrium, sternoclavicular joints, and clavicles are unremarkable. CHEST: No axillary, hilar, or mediastinal lymphadenopathy. No effusion or pneumothorax. The lungs are clear. The aorta is nonaneurysmal. No acute or suspect soft tissue or osseous chest wall pathology. The bony structures are unremarkable. The aorta is nonaneurysmal. The visualized upper abdomen is nonacute. IMPRESSION: The noncontrasted soft tissue neck and chest CTs are unremarkable. In particular, no lymphadenopathy, mass, fluid collection, or periclavicular pathology is identified. Dictated by: Dictated on workstation # [id number]
== END ==
LOC: RAD 14:01
PROVIDERS: ATTEND Nurse Practitioner Family
DX: R59.0 Localized enlarged lymph nodes (principal)
CPT/HCPCS: 70490; 71250

== ENCOUNTER → 2021-05-15 | Outpatient (CLI) | payer BC, OTHER ==
[2021-05-15 11:49] LABS: BASOPHILS # (AUTO) 0.1 10^3/uL (0.0-0.1); BASOPHILS % (AUTO) 1 % (0-10); EOSINOPHILS # (AUTO) 0.3 10^3/uL (0.0-0.3); EOSINOPHILS % (AUTO) 5 % (0-10); HEMATOCRIT 36 % (35-52); HEMOGLOBIN 12.3 g/dL (11.5-16.0); LYMPHOCYTES # (AUTO) 2.1 10^3/uL (1.0-4.0); LYMPHOCYTES % (AUTO) 32 % (12-44); MEAN CORPUSCULAR HEMOGLOBIN 29 pg (25-34); MEAN CORPUSCULAR HGB CONC 34 g/dL (32-36); MEAN CORPUSCULAR VOLUME 86 fL (80-99); MEAN PLATELET VOLUME 9.7 fL (9.0-12.2); MONOCYTES # (AUTO) 0.4 10^3/uL (0.0-1.0); MONOCYTES % (AUTO) 7 % (0-12); NEUTROPHILS # (AUTO) 3.6 10^3/uL (1.8-7.8); NEUTROPHILS % (AUTO) 55 % (42-75); PLATELET COUNT 260 10^3/uL (130-400); WHITE BLOOD COUNT 6.5 10^3/uL (4.3-11.0)
[2021-05-15 12:49] LABS: ERYTHROCYTE SEDIMENTATION RATE 55 MM/HR (0-20)
--- NOTE | 2021-05-18 10:02 | Diagnostic Imaging Report ---
INDICATION: Fever, chills and cough. TIME OF EXAM: 11:48 AM COMPARISON: No prior studies are available for comparison. Heart size is normal. There is some very mild interstitial prominence in the mid and lower lung pierson. The possibility of mild underlying interstitial pneumonia cannot be entirely excluded. In addition, the lateral view does show slight blunting of the costophrenic angles, likely indicative of trace pleural fluid. Upper lung pierson are clear. There is no pneumothorax. IMPRESSION: 1. Mild interstitial prominence which could indicate mild interstitial infiltrate or pneumonia. This can be seen with a viral illness. There is also trace pleural fluid. Report given to ALIZA Pearson at 12:36 PM 05/15/2021/cb Dictated by: Dictated on workstation # [id number]
== END ==
LOC: RAD 11:19
PROVIDERS: ATTEND Nurse Practitioner Family
DX: R50.9 Fever, unspecified (principal); R05.1 Acute cough
CPT/HCPCS: 36415; 71046; 85025; 85652; 86738